=== PATIENT | male | born 1930 | race Caucasian/White ===

== ENCOUNTER 2017-02-02 06:20 | Emergency (ER) | payer OTHER ==
[~2017-02-02] VITALS: Ht 175.3 cm; Wt 87.2 kg
[~2017-02-02 06:20] MED LIST: AMITIZA24 MICROGR PO; ASPIRIN81 M2 PO; Ambien PO; Anusol HC,Anucort-HC PR; BABY ASPIRIN81 M1 PO; BACTRIM,SEPT1 TABLET PO; CENTRUM SILVER1 EAC3 PO; CIPRO500 MG PO; CITRACAL D + H1 EACH PO; CITRACAL W/V1 TABLE1 PO; CITRACAL-VIT D1 EACH PO; CLEOCIN300 MG PO; COLACE; COLACE100 MG PO; CORTIZONE-1028 GM TP; Colace PO; DESOXIMETASONE15 G1 TD; DRONABINOL2.5 MG PO; FIBER LAXATIV0.52 GM PO; FIBER LAXATIVE; FISH OIL OMEGA1 EACH PO; FLAGYL500 MG PO; FLOMAX0.4 MG PO; FUROSEMIDE40 MG PO; Flagyl PO; Flomax PO; IMDUR60 MG PO; ISOSORBIDE MONO60 MG PO; Imdur PO; KLOR-CON 1010 ME1 PO; KRILL OIL500 MG PO; LASIX40 MG PO; LOW DOSE ASPIRI81 M2 PO; Lasix PO; MARINOL2.5 M1 PO; METHOTREXATE2.5 MG PO; Marinol PO; Mega Red Krill Oil PO; Micro-K,K-Tab,K-Dur, PO; Miralax, Glycolax PO; Nitrostat,NitroQuick SL; OMEPRAZOLE20 M2 PO; OMEPRAZOLE20 MG PO; ORENCIA125 MG/1 M SQ; Oscal 500 w/Vitamin PO; PRAVACHOL10 MG PO; PRAVASTATIN SOD10 MG PO; PREDNISONE2.5 MG PO; PREDNISONE20 MG PO; PREVALITE PACKET4 GM PO; PRILOSEC20 MG PO; Pravachol PO; Protonix PO; Questran PO; SANDIMMUNE25 MG PO; SENOKOT; SENOKOT,SENN1 TABLET PO; SYSTANE 0.300 DROP/1 BOTH EYES; Senokot S,Pericolace PO; Senokot,Sennagen PO; TYLENOL REGULA325 MG PO; Theragran PO; Tylenol Regular Stre PO; VALACYCLOVIR500 MG PO; VALTREX1000 MG PO; VITAMIN B-12500 MC2 PO; WARFARIN SODIU2.5 MG PO; WARFARIN SODIUM5 MG PO; predniSONE PO
[2017-02-02 07:11] LABS: INTER. NORMALIZED RATIO 3.7; PROTHROMBIN TIME 42.6 SEC (10.2-12.9)
[2017-02-02 07:14] LABS: PTT 54.4 SEC (25-37)
[2017-02-02 07:25] LABS: EOSINOPHIL (%) 3.8 % (0-5); EOSINOPHIL COUNT 0.2 K/uL (0-0.3); IMMATURE GRANULOCYTE (%) 0.2 % (0.0-0.7); INSTRUMENT ABS NEUTROPHIL CT 3.5 K/uL; MCH 30.5 PG (29.0-34.0); MCHC 32.9 G/DL (30.0-36.0); MCV 92.6 FL (86-99); MEAN PLAT.VOLUME 8.7 uM^3 (9.0-12.4); MONOCYTE (%) 9.3 % (3-12); MONOCYTE COUNT 0.5 K/uL (0-0.8); NEUTROPHIL (%) 67.1 % (45-76); NEUTROPHIL COUNT 3.5 K/uL (1.8-6.4); PLATELET COUNT 104 K/uL (156-360); RBC DIS.WIDTH-CV 13.2 % (11.8-14.6); RBC DIS.WIDTH-SD 44.8 % (39-53); RED BLOOD COUNT 4.43 M/uL (4.00-5.50); WHITE BLOOD COUNT 5.3 K/uL (4.1-10.2)
[2017-02-02 07:31] LABS: ANION GAP 5 MEQ/L (2-14); CHLORIDE 108 MEQ/L (99-109); POTASSIUM 3.4 MEQ/L (3.7-5.4); SAMPLE HEMOLYSIS CHECK 0; SAMPLE ICTERIC CHECK 0; SAMPLE LIPEMIA CHECK 0; SODIUM 143 MEQ/L (136-147); TOTAL BILIRUBIN 0.3 MG/DL (0.0-1.0)
[2017-02-02 07:36] LABS: ALKALINE PHOSPHATASE 68 IU/L (3-129); GFR ESTIMATE (CALCULATED) > 59 mL/min/; GLUCOSE 109 mg/dL (70-99); UREA NITROGEN (BUN) 18 mg/dL (9-23)
[2017-02-02 09:38] VITALS: BP 131/80
== END 2017-02-02 09:40 | disposition home or self-care (01) ==
LOC: EME 06:20
PROVIDERS: Emergency Medicine
DX: S20.219A Contusion of unspecified front wall of thorax, initial encounter (principal); E87.6 Hypokalemia; W18.30XA Fall on same level, unspecified, initial encounter; Z87.891 Personal history of nicotine dependence; Z85.46 Personal history of malignant neoplasm of prostate; Z86.73 Personal history of transient ischemic attack (TIA), and cerebral infarction without residual deficits; I25.2 Old myocardial infarction; K21.9 Gastro-esophageal reflux disease without esophagitis; E78.5 Hyperlipidemia, unspecified; I10 Essential (primary) hypertension; Z79.01 Long term (current) use of anticoagulants; Z95.1 Presence of aortocoronary bypass graft; Z86.718 Personal history of other venous thrombosis and embolism
CPT/HCPCS: 70450; 71020; 73030; 80053; 85025; 85610; 85730; 99281; 99284

== ENCOUNTER 2017-02-24 15:05 | Inpatient (IN) | payer OTHER ==
[~2017-02-24] VITALS: Ht 177.8 cm; Wt 86.4 kg
[~2017-02-24 15:05] MED LIST changes: +MICRO-K10 ME2 PO; +PREDNISONE5 MG PO; +SYSTANE 0.3-0.1 EACH BOTH EYES; -SYSTANE 0.300 DROP/1 BOTH EYES; +VITAMIN B-122500 MCG SL; -VITAMIN B-12500 MC2 PO
[2017-02-24 16:23] LABS: EOSINOPHIL (%) 0.2 % (0-5); HEMATOCRIT 45.2 % (38.0-50.0); IMMATURE GRANULOCYTE (%) 0.3 % (0.0-0.7); INSTRUMENT ABS NEUTROPHIL CT 8.3 K/uL; LYMPHOCYTE COUNT 0.4 K/uL (1.0-2.8); MCH 31.1 PG (29.0-34.0); MCHC 33.2 G/DL (30.0-36.0); MCV 93.6 FL (86-99); MEAN PLAT.VOLUME 8.8 uM^3 (9.0-12.4); MONOCYTE (%) 5.6 % (3-12); MONOCYTE COUNT 0.5 K/uL (0-0.8); NEUTROPHIL (%) 89.1 % (45-76); NEUTROPHIL COUNT 8.3 K/uL (1.8-6.4); PLATELET COUNT 105 K/uL (156-360); RBC DIS.WIDTH-CV 13.3 % (11.8-14.6); RBC DIS.WIDTH-SD 46.2 % (39-53); RED BLOOD COUNT 4.83 M/uL (4.00-5.50); WHITE BLOOD COUNT 9.3 K/uL (4.1-10.2)
[2017-02-24 16:33] LABS: PTT 65.2 SEC (25-37)
[2017-02-24 16:34] LABS: CHLORIDE 105 mEq/L (99-109); SODIUM 142 mEq/L (136-147)
[2017-02-24 16:36] LABS: GLUCOSE 133 mg/dL (70-99)
[2017-02-24 16:37] LABS: ANION GAP 11 MEQ/L (2-14); PROTHROMBIN TIME 54.1 SEC (10.2-12.9)
[2017-02-24 16:38] LABS: TOTAL BILIRUBIN 1.1 mg/dL (0.0-1.0)
[2017-02-24 16:39] LABS: INTER. NORMALIZED RATIO 4.6
[2017-02-24 16:40] LABS: ALKALINE PHOSPHATASE 103 IU/L (3-129); GFR ESTIMATE (CALCULATED) > 59 mL/min/
[2017-02-24 16:41] LABS: UREA NITROGEN (BUN) 14 mg/dL (9-23)
[2017-02-24 16:43] LABS: TROP-I INTERPRETATION NEGATIVE; TROPONIN-I 0.02 ng/mL (0.0-0.30)
[2017-02-24 17:43] LABS: ADD MIUA? NO; BILIRUBIN NEGATIVE; BLOOD NEGATIVE; COLOR YELLOW ((YELLOW)); GLUCOSE (STRIP) NEGATIVE; KETONES NEGATIVE; LEUKOCYTES NEGATIVE; NITRITE NEGATIVE; PROTEIN (STRIP) NEGATIVE; SPECIFIC GRAVITY 1.011 (1.000-1.030); UCUL ADDED? NO
[2017-02-24] MEDS ORDERED: DELSYM30 MG/5 M1 PO (18:35)
[2017-02-24] MEDS ORDERED: CARBAMAZEPINE200 M1 PO (18:35)
[2017-02-24] MEDS ORDERED: PRESERVISION T1 EACH PO (18:35)
[2017-02-24] MEDS ORDERED: ERGOCALCIF50000 UNIT PO (18:35)
[2017-02-24] MEDS ORDERED: CORICIDIN HBP1 EACH PO (18:36)
[2017-02-24] MEDS ORDERED: [UNRECOGNIZED DRUG - OTHER] PO (18:36)
[2017-02-25] VITALS (7 sets, daily range): BP systolic 134–199; BP diastolic 63–83
[2017-02-25 06:21] LABS: INTER. NORMALIZED RATIO 3.9; PROTHROMBIN TIME 45.5 SEC (10.2-12.9)
[2017-02-25 06:30] LABS: HEMATOCRIT 38.3 % (38.0-50.0); MCH 32.2 PG (29.0-34.0); MCHC 33.9 G/DL (30.0-36.0); MCV 94.8 FL (86-99); MEAN PLAT.VOLUME 9.3 uM^3 (9.0-12.4); PLATELET COUNT 91 K/uL (156-360); RBC DIS.WIDTH-CV 13.4 % (11.8-14.6); RBC DIS.WIDTH-SD 46.7 % (39-53); RED BLOOD COUNT 4.04 M/uL (4.00-5.50); WHITE BLOOD COUNT 10.7 K/uL (4.1-10.2)
[2017-02-25 06:37] LABS: ALKALINE PHOSPHATASE 70 IU/L (3-129); ANION GAP 9 MEQ/L (2-14); CHLORIDE 108 MEQ/L (99-109); GFR ESTIMATE (CALCULATED) > 59 mL/min/; GLUCOSE 87 mg/dL (70-99); POTASSIUM 3.5 MEQ/L (3.7-5.4); SAMPLE HEMOLYSIS CHECK 0; SAMPLE ICTERIC CHECK 0; SAMPLE LIPEMIA CHECK 0; SODIUM 142 MEQ/L (136-147); UREA NITROGEN (BUN) 14 mg/dL (9-23)
[2017-02-26] VITALS (7 sets, daily range): BP systolic 111–164; BP diastolic 60–82
[2017-02-26 05:31] LABS: INTER. NORMALIZED RATIO 2.9
[2017-02-26 05:32] LABS: PROTHROMBIN TIME 33.1 SEC (10.2-12.9)
[2017-02-26 05:35] LABS: ANION GAP 8 MEQ/L (2-14); CHLORIDE 110 MEQ/L (99-109); GFR ESTIMATE (CALCULATED) > 59 mL/min/; GLUCOSE 121 mg/dL (70-99); POTASSIUM 3.6 MEQ/L (3.7-5.4); SAMPLE HEMOLYSIS CHECK 0; SAMPLE ICTERIC CHECK 0; SAMPLE LIPEMIA CHECK 0; SODIUM 141 MEQ/L (136-147); UREA NITROGEN (BUN) 16 mg/dL (9-23)
[2017-02-27] VITALS (37 sets, daily range): BP systolic 0–118; BP diastolic 0–63
[2017-02-27 03:57] LABS: METH RESISTANT S AUREUS PCR NEGATIVE (NEGATIVE)
[2017-02-27 04:01] LABS: PROBE CHECK PASS; SPECIMEN PROCESSING CONTROL PASS
[2017-02-27 06:03] LABS: HEMATOCRIT 32.4 % (38.0-50.0); MCH 31.3 PG (29.0-34.0); MCHC 33.3 G/DL (30.0-36.0); MCV 93.9 FL (86-99); MEAN PLAT.VOLUME 9.4 uM^3 (9.0-12.4); RBC DIS.WIDTH-CV 13.3 % (11.8-14.6); RED BLOOD COUNT 3.45 M/uL (4.00-5.50); WHITE BLOOD COUNT 13.4 K/uL (4.1-10.2)
[2017-02-27 06:19] LABS: ANION GAP 11 MEQ/L (2-14); CHLORIDE 106 MEQ/L (99-109); GFR ESTIMATE (CALCULATED) > 59 mL/min/; GLUCOSE 167 mg/dL (70-99); POTASSIUM 3.6 MEQ/L (3.7-5.4); SAMPLE HEMOLYSIS CHECK 0; SAMPLE ICTERIC CHECK 0; SAMPLE LIPEMIA CHECK 0; SODIUM 141 MEQ/L (136-147); UREA NITROGEN (BUN) 18 mg/dL (9-23)
[2017-02-27 06:39] LABS: PLATELET COUNT 122 K/uL (156-360)
[2017-02-27 06:40] LABS: EOSINOPHIL (%) 0.1 % (0-5); IMMATURE GRANULOCYTE (%) 0.5 % (0.0-0.7); IMMATURE GRANULOCYTE COUNT 0.1 K/uL; INSTRUMENT ABS NEUTROPHIL CT 11.8 K/uL; LYMPHOCYTE COUNT 0.3 K/uL (1.0-2.8); MONOCYTE (%) 8.7 % (3-12); MONOCYTE COUNT 1.2 K/uL (0-0.8); NEUTROPHIL (%) 88.4 % (45-76); NEUTROPHIL COUNT 11.8 K/uL (1.8-6.4)
[2017-02-27 07:19] LABS: INTER. NORMALIZED RATIO 2.7; PROTHROMBIN TIME 30.3 SEC (10.2-12.9)
[2017-02-27 18:13] LABS: C DIFF TOXIN NEGATIVE (NEGATIVE); PROBE CHECK PASS; SPECIMEN PROCESSING CONTROL PASS
[2017-02-27 19:30] LABS: PTT 53.2 SEC (25-37)
[2017-02-27 19:36] LABS: INTER. NORMALIZED RATIO 4.3; PROTHROMBIN TIME 50.8 SEC (10.2-12.9)
[2017-02-27 19:40] LABS: EOSINOPHIL (%) 0.2 % (0-5); HEMATOCRIT 25.4 % (38.0-50.0); IMMATURE GRANULOCYTE COUNT 0.2 K/uL; INSTRUMENT ABS NEUTROPHIL CT 13.5 K/uL; LYMPHOCYTE COUNT 1.3 K/uL (1.0-2.8); MCH 31.3 PG (29.0-34.0); MCHC 33.1 G/DL (30.0-36.0); MCV 94.8 FL (86-99); MEAN PLAT.VOLUME 9.7 uM^3 (9.0-12.4); MONOCYTE (%) 10.3 % (3-12); MONOCYTE COUNT 1.7 K/uL (0-0.8); NEUTROPHIL (%) 80.5 % (45-76); NEUTROPHIL COUNT 13.5 K/uL (1.8-6.4); RBC DIS.WIDTH-CV 13.5 % (11.8-14.6); RBC DIS.WIDTH-SD 46.8 % (39-53); WHITE BLOOD COUNT 16.7 K/uL (4.1-10.2)
[2017-02-27 19:55] LABS: ALKALINE PHOSPHATASE 50 IU/L (3-129); ANION GAP 11 MEQ/L (2-14); CHLORIDE 108 MEQ/L (99-109); GFR ESTIMATE (CALCULATED) 41 mL/min/; GLUCOSE 156 mg/dL (70-99); POTASSIUM 4.1 MEQ/L (3.7-5.4); SAMPLE HEMOLYSIS CHECK 0; SAMPLE ICTERIC CHECK 0; SAMPLE LIPEMIA CHECK 0; SODIUM 140 MEQ/L (136-147); TOTAL BILIRUBIN 0.5 MG/DL (0.0-1.0); UREA NITROGEN (BUN) 23 mg/dL (9-23)
[2017-02-27 19:59] LABS: PLATELET COUNT 169 K/uL (156-360); RED BLOOD COUNT 2.68 M/uL (4.00-5.50)
== END 2017-02-28 03:10 | DRG 335 ==
LOC: EME 15:05 → 4EAST 19:55 → EDOF 19:55 → 4WEST 19:55 → ENRESERV 20:00 → 4EAST 23:37 → ENRESERV 02-27 01:22 → 4WEST 02-27 02:05
PROVIDERS: Emergency Medicine; Internal Medicine; Internal Medicine Critical Care Medicine; Surgery
DX: K35.2 Acute appendicitis with generalized peritonitis (principal); J95.821 Acute postprocedural respiratory failure; J18.9 Pneumonia, unspecified organism; I47.1 Supraventricular tachycardia; I11.0 Hypertensive heart disease with heart failure; I97.89 Other postprocedural complications and disorders of the circulatory system, not elsewhere classified; I48.2 Chronic atrial fibrillation; I27.2 Other secondary pulmonary hypertension; I50.30 Unspecified diastolic (congestive) heart failure; D68.9 Coagulation defect, unspecified; N40.0 Benign prostatic hyperplasia without lower urinary tract symptoms; E78.5 Hyperlipidemia, unspecified; J20.9 Acute bronchitis, unspecified; J98.11 Atelectasis; M06.9 Rheumatoid arthritis, unspecified; I25.10 Atherosclerotic heart disease of native coronary artery without angina pectoris; C61 Malignant neoplasm of prostate; E87.6 Hypokalemia; N39.0 Urinary tract infection, site not specified; N17.9 Acute kidney failure, unspecified; R09.02 Hypoxemia; K21.9 Gastro-esophageal reflux disease without esophagitis; R50.82 Postprocedural fever; M81.0 Age-related osteoporosis without current pathological fracture; Z66 Do not resuscitate; Z86.73 Personal history of transient ischemic attack (TIA), and cerebral infarction without residual deficits; Z95.1 Presence of aortocoronary bypass graft; Z85.46 Personal history of malignant neoplasm of prostate; Z86.711 Personal history of pulmonary embolism; Z86.718 Personal history of other venous thrombosis and embolism; Z92.3 Personal history of irradiation; Z87.11 Personal history of peptic ulcer disease; Z87.891 Personal history of nicotine dependence; Z79.01 Long term (current) use of anticoagulants; Z85.6 Personal history of leukemia; I25.2 Old myocardial infarction
CPT/HCPCS: 71010; 74177; 80048; 80053; 81003; 82436; 82570; 83605; 83880; 83935; 84133; 84300; 84484; 85025; 85025 91; 85027; 85610; 85730; 86850; 86900; 86901; 87040; 87070; 87205; 87493; 87641; 88304; 92610 GN; 93005; 94640; 94799; 99281; 99285; C1751; C9113; J0153; J0330; J0456; J0461; J0696; J1170; J1720; J1940; J2405; J2710; J3010; J3430; J7050; J7120; J7512; P9017; P9047; S0028; S0030